=== PATIENT | female | born 1960 | race Caucasian/White ===

== ENCOUNTER 2017-09-17 08:40 | Outpatient (CLI) | payer MEDICARE, MEDICAID ==
--- NOTE | 2017-09-17 13:29 | Diagnostic Imaging Report ---
Bilateral breast ultrasound HISTORY: Mass. Sonographic sector images were obtained about the quadrants of both breasts. Prior exams are not available for comparison. Exam the right breast demonstrates an approximate 0.2 x 0.2 x 0.4 cm well-circumscribed sonolucent lesion in the retroareolar region. Findings consistent with a small cyst. No other focal lesions. The left breast is unremarkable. No abnormal solid or cystic masses. IMPRESSION: 1. Findings consistent with a subcentimeter cyst within the retroareolar region of the right breast. No other significant abnormalities are sonographically seen.
== END 2017-09-17 09:45 | disposition home or self-care (01) ==
LOC: RAD 08:40
DX: N64.89 Other specified disorders of breast (principal)
CPT/HCPCS: 76641